=== PATIENT | female | born 1980 | race American Indian/Alaskan Native ===

== ENCOUNTER 2016-12-10 10:29 | Emergency (ER) | payer OTHER ==
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
[2016-12-10 14:09] VITALS: BP 115/75
== END 2016-12-10 14:00 | disposition home or self-care (01) ==
LOC: ED 10:29
DX: S46.912A Strain of unspecified muscle, fascia and tendon at shoulder and upper arm level, left arm, initial encounter (principal); V49.49XA Driver injured in collision with other motor vehicles in traffic accident, initial encounter; Y93.9 Activity, unspecified; Y92.9 Unspecified place or not applicable; Y99.9 Unspecified external cause status
CPT/HCPCS: 99283